=== PATIENT | female | born 1970 | race African-American/Black ===

== ENCOUNTER 2017-02-04 21:44 | Emergency (ER) | payer OTHER ==
[~2017-02-04] VITALS: Ht 172.7 cm; Wt 92.5 kg
[2017-02-04 21:47] VITALS: BP 151/93
[2017-02-04] MEDS ORDERED: IRON65TA PO (21:55)
[2017-02-04] MEDS ORDERED: VITAD1000T PO (21:55)
[2017-02-04] MEDS ORDERED: HYDR12.55 PO (21:55)
[2017-02-04] MEDS ORDERED: FLUORESCEIN OPHTH 1 MG STRIP As Ordered ONE (22:09)
[2017-02-04] MEDS ORDERED: FLUORESCEIN OPHTH 1 MG STRIP XX ONE (22:15)
[2017-02-04] MEDS ORDERED: GENTAMICIN 0.3% OPHTH SOL 5 ML BTL OD ONE (22:30)
== END 2017-02-04 22:32 | disposition home or self-care (01) ==
LOC: M ED 22:29
DX: S05.01XA Injury of conjunctiva and corneal abrasion without foreign body, right eye, initial encounter (principal); X58.XXXA Exposure to other specified factors, initial encounter; Y92.89 Other specified places as the place of occurrence of the external cause; Y93.89 Activity, other specified; Y99.8 Other external cause status; I10 Essential (primary) hypertension; Z79.899 Other long term (current) drug therapy; Z88.0 Allergy status to penicillin